=== PATIENT | female | born 1955 | race Hispanic/Latino ===

== ENCOUNTER 2021-01-27 18:34 | Emergency (ER) | payer BC ==
[2021-01-27] MEDS ORDERED: LIDOCAINE HCL 1% 20 ML VIAL ONE (19:18)
[2021-01-27 20:15] LABS: CREATININE 0.9 mg/dL (0.5-1.5); POTASSIUM 3.9 mmol/L (3.5-5.1)
[2021-01-27] MEDS ORDERED: SULFAMETHOX-TMP DS 800/160 TAB ONE (20:21)
== END 2021-01-27 20:39 | disposition home or self-care (01) ==
LOC: EDH 18:34
DX: L02.214 Cutaneous abscess of groin (principal); E11.65 Type 2 diabetes mellitus with hyperglycemia; R03.0 Elevated blood-pressure reading, without diagnosis of hypertension; Z90.49 Acquired absence of other specified parts of digestive tract; Z90.710 Acquired absence of both cervix and uterus; Z98.51 Tubal ligation status
CPT/HCPCS: 10060; 36415; 80048; 82948